=== PATIENT | male | born 1995 | race Caucasian/White ===

== ENCOUNTER 2017-06-20 14:35 | Emergency (ER) | payer SELFPAY ==
[~2017-06-20] VITALS: Ht 177.8 cm; Wt 59.0 kg
[2017-06-20] MEDS ORDERED: CIPRODEX OTIC7.5 ML (15:16)
[2017-06-20 16:29] VITALS: BP 136/95
[2017-06-20] MEDS ORDERED: NEOMYCIN/POLYMYX/HYDROC (OTIC) 10 ML BTL OT SCH (18:00)
== END 2017-06-20 16:20 | disposition home or self-care (01) ==
LOC: ER 14:35
DX: T16.2XXA Foreign body in left ear, initial encounter (principal); H65.02 Acute serous otitis media, left ear; F17.210 Nicotine dependence, cigarettes, uncomplicated
CPT/HCPCS: 99283